=== PATIENT | male | born 1995 | race Two or more races ===

== ENCOUNTER 2018-09-21 18:45 | Emergency (ER) | payer BC, OTHER ==
[~2018-09-21] VITALS: Ht 180.3 cm; Wt 79.4 kg
[2018-09-21 19:40] LABS: Basophils # (auto) 0.1 uL; Basophils % (auto) 0.8 % (0.0-2.0); Eosinophils # (auto) 0.1 uL; Eosinophils % (auto) 1.2 % (0.0-7.0); Hemoglobin 15.8 g/dL (13.5-17.5); Lymphocytes # (auto) 2.3 uL; Lymphocytes % (auto) 31.7 % (10.0-50.0); Mean Corpuscular Hemoglobin 31.3 pg (28.0-32.0); Mean Corpuscular Hgb Conc. 33.7 g/dL (32.0-36.0); Monocytes # (auto) 0.6 uL; Monocytes % (auto) 7.8 % (0.0-12.0); Neutrophils # (auto) 4.3 uL; Neutrophils % (auto) 58.5 % (37.0-80.0); Nucleated Red Blood Cells % 0.1 %; Platelet Count (auto) 181 10^3/uL (140-450); Red Blood Cells 5.06 10^6/uL (4.5-5.90); Red Cell Distribution Width 12.8 % (11.8-14.3); White Blood Cell 7.3 10^3/uL (4.4-10.8)
[2018-09-21 19:53] LABS: Albumin 4.1 g/dL (3.4-5.0); BUN/Creatinine Ratio 14.8; Calcium 8.8 mg/dL (8.5-10.1); Potassium 3.9 mmol/L (3.5-5.1)
[2018-09-21 19:54] LABS: Urine Bacteria NONE SEEN /hpf (None Seen); Urine Blood Negative /uL (Negative); Urine Mucus FEW (None Seen); Urine Specific Gravity 1.028 (1.001-1.035); Urine WBC <1 /hpf (0 - 3)
[2018-09-21 19:55] LABS: Bilirubin, Total 0.5 mg/dL (0.2-1.0); Total Protein 7.9 g/dL (6.4-8.2)
[2018-09-21 20:08] LABS: INR 1.05 (0.9-1.15); Partial Thromboplastin Time 26.2 sec (23.78-33.04); Prothrombin Time 10.6 sec (9.27-12.13)
[2018-09-21] MEDS ORDERED: IOHEXOL 300 MG/ML 100ML BOTTLE IJ ONE (20:49)
[2018-09-21] MEDS ORDERED: SODIUM CHLORIDE 0.9% 1,000 ML IVB ONE (20:58)
[2018-09-21] MEDS ORDERED: KETOROLAC TROMETH 30 MG/ML 1ML VIAL IV ONE (21:30)
[2018-09-21 22:55] VITALS: BP 134/85
== END 2018-09-21 23:07 | disposition home or self-care (01) ==
LOC: ER 19:02
DX: K59.00 Constipation, unspecified (principal)
CPT/HCPCS: 36415; 71045; 74177; 80053; 81001; 82150; 82962; 83690; 83735; 85025; 85610; 85730; 96374; 99284; J1885; J7030; Q9967; 96361

== ENCOUNTER 2019-07-03 13:03 | Emergency (ER) | payer OTHER ==
[~2019-07-03] VITALS: Ht 180.3 cm; Wt 79.4 kg
[2019-07-03] MEDS ORDERED: SODIUM CHLORIDE 0.9% 1,000 ML IVB ONE (13:45)
[2019-07-03 14:05] LABS: Basophils # (auto) 0 uL; Basophils % (auto) 0.5 % (0.0-2.0); Eosinophils # (auto) 0 uL; Eosinophils % (auto) 0.3 % (0.0-7.0); Hematocrit 47.4 % (41.0-53.0); Hemoglobin 15.9 g/dL (13.5-17.5); Lymphocytes # (auto) 1.6 uL; Lymphocytes % (auto) 22.9 % (10.0-50.0); Mean Corpuscular Hemoglobin 31.1 pg (28.0-32.0); Mean Corpuscular Hgb Conc. 33.6 g/dL (32.0-36.0); Mean Corpuscular Volume 92.6 fL (80.0-100.0); Monocytes # (auto) 0.4 uL; Neutrophils # (auto) 5.1 uL; Neutrophils % (auto) 71.3 % (37.0-80.0); Platelet Count (auto) 165 10^3/uL (140-450); Red Blood Cells 5.11 10^6/uL (4.5-5.90); Red Cell Distribution Width 12.9 % (11.8-14.3); White Blood Cell 7.1 10^3/uL (4.4-10.8)
[2019-07-03 14:30] LABS: Urine WBC None Seen /hpf (0 - 3)
[2019-07-03 14:40] LABS: Albumin 4.3 g/dL (3.4-5.0); Calcium 9.1 mg/dL (8.5-10.1); Potassium 3.8 mmol/L (3.5-5.1)
[2019-07-03 14:43] LABS: BUN/Creatinine Ratio 14.1; Total Protein 7.8 g/dL (6.4-8.2)
[2019-07-03 15:27] LABS: Urine Bacteria NONE SEEN /hpf (None Seen); Urine Blood Negative /uL (Negative); Urine Mucus FEW (None Seen); Urine Specific Gravity 1.027 (1.001-1.035)
[2019-07-03 17:54] VITALS: BP 120/70
== END 2019-07-03 17:58 | disposition home or self-care (01) ==
LOC: ER 13:43
DX: R10.31 Right lower quadrant pain (principal); R11.2 Nausea with vomiting, unspecified
CPT/HCPCS: 36415; 74176; 80053; 81001; 83690; 85025; 96360

== ENCOUNTER 2021-03-13 21:31 | Emergency (ER) | payer OTHER ==
[~2021-03-13] VITALS: Ht 180.3 cm; Wt 86.2 kg
[2021-03-14] MEDS ORDERED: IBUPROFEN 800 MG TAB PO ONE (00:45)
[2021-03-14 06:51] VITALS: BP 135/78
== END 2021-03-14 03:28 | disposition home or self-care (01) ==
LOC: ER 21:31
DX: S39.012A Strain of muscle, fascia and tendon of lower back, initial encounter (principal); X50.0XXA Overexertion from strenuous movement or load, initial encounter; Y93.89 Activity, other specified; Y92.89 Other specified places as the place of occurrence of the external cause; Y99.8 Other external cause status
CPT/HCPCS: 72100